=== PATIENT | male | born 1965 | race African-American/Black ===

== ENCOUNTER 2018-05-14 05:09 | Inpatient (IN) | payer MEDICARE, OTHER ==
[~2018-05-14] VITALS: Ht 170.2 cm; Wt 83.9 kg
--- NOTE | 2018-05-14 05:30 | NUR ---
PT BIBSELF FROM HOME C/C CONSTANT CHEST PAIN RADIATING TO RIGHT SHOULDER X3 DAYS, +N/V, +SOB, + PRODUCTIVE COUGH. PT C/O OF GENERALIZED ABD PAIN NONRADIATING. AFEBRILE. NAD NOTED. RESP EVEN AND UNLABORED. PT ON MONITOR IN BED 2. WILL CONTINUE TO MONITOR.
--- NOTE | 2018-05-14 05:32 | NUR ---
RADIOLOGY AT BEDSIDE FOR CXR
--- NOTE | 2018-05-14 05:43 | NUR ---
PHLEB AT BEDSIDE FOR LAB DRAW
[2018-05-14 05:55] LABS: EOSINOPHILS % (AUTO) 2.4 % (0.0-6.0); HEMATOCRIT 32 % (39-51); HEMOGLOBIN 10.3 g/dL (13.5-17.5); LYMPHOCYTES # (AUTO) 0.9 /CMM (0.8-4.8); LYMPHOCYTES % (AUTO) 23.2 % (20.0-44.0); MEAN CORPUSCULAR HGB CONC 32 g/dl (31.0-36.0); MEAN CORPUSCULAR VOLUME 71 fL (80-96); MONOCYTES # (AUTO) 0.6 /CMM (0.1-1.30); MONOCYTES % (AUTO) 15.5 % (2.0-12.0); NEUTROPHILS # (AUTO) 2.2 /CMM (1.8-8.9); NEUTROPHILS % (AUTO) 57.9 % (43.0-81.0); PLATELET COUNT (AUTO) 261 /CMM (150-450); RED BLOOD CELL COUNT(AUTO) 4.53 MIL/uL (4.5-6.0); WHITE BLOOD COUNT (AUTO) 3.7 K/uL (4.3-11.0)
[2018-05-14 06:03] LABS: CALCIUM, SERUM 9.1 mg/dL (8.5-10.1); CARBON DIOXIDE 26 mmol/L (21-32); CHLORIDE 105 mmol/L (98-107); GLUCOSE 106 mg/dL (74-106); POTASSIUM 4.2 mmol/L (3.5-5.1); SODIUM SERUM 141 mmol/L (136-145); UREA NITROGEN, BLOOD 14 mg/dL (7-18)
[2018-05-14] MEDS ORDERED: IV NS 0.9% 1,000 ML BAG IV ONE (06:30)
[2018-05-14] MEDS ORDERED: methylPREDNISolone SOD SUCC 125 MG/2ML VIAL IV ONE (06:30)
[2018-05-14] MEDS ORDERED: ONDANSETRON HCL/PF - ER 4 MG/2 ML VIAL IV ONE (06:30)
[2018-05-14] MEDS ORDERED: ALBUTEROL FS 2.5 MG/3 ML VIAL.NEB CONTNEB ONE (06:30)
[2018-05-14] MEDS ORDERED: IPRATROPIUM NEB FS 0.5 MG/2.5 ML AMPUL.NEB NEB ONE (06:30)
[2018-05-14] MEDS ORDERED: MORPHINE SULFATE INJ 2 MG/ML DISP.SYRIN IV ONE (06:30)
[2018-05-14] MEDS ORDERED: MORPHINE SULFATE INJ 4 MG/ML DISP.SYRIN ONE (06:31)
[2018-05-14] MEDS ORDERED: ONDANSETRON HCL/PF 4 MG/2 ML VIAL ONE (06:31)
[2018-05-14] MEDS ORDERED: methylPREDNISolone SOD SUCC 125 MG/2ML VIAL ONE (06:31)
--- NOTE | 2018-05-14 06:53 | NUR ---
RT CALLED FOR BREATHING TREATMENT
[2018-05-14] MEDS ORDERED: ALBUTEROL FS 2.5 MG/3 ML VIAL.NEB ONE (07:01)
[2018-05-14] MEDS ORDERED: IPRATROPIUM NEB FS 0.5 MG/2.5 ML AMPUL.NEB ONE (07:01)
--- NOTE | 2018-05-14 07:16 | NUR ---
ENDORSED TO [facility]GR[facility] FOR SIN
--- NOTE | 2018-05-14 07:49 | NUR ---
CALLED FOR TELE BED
--- NOTE | 2018-05-14 07:51 | NUR ---
DR NORIEGA AT FOR AN UPDATE AND RE-EVAL.
[2018-05-14] MEDS ORDERED: ALBU2.5V38 IH (08:00)
[2018-05-14] MEDS ORDERED: ALBU18HF2 IH (08:00)
[2018-05-14] MEDS ORDERED: LISI40TA4 PO (08:00)
[2018-05-14] MEDS ORDERED: LORA-259 PO (08:00)
[2018-05-14] MEDS ORDERED: FURO-144 PO (08:00)
[2018-05-14] MEDS ORDERED: BUDE10.2 IH (08:00)
[2018-05-14] MEDS ORDERED: SERT100T PO (08:00)
[2018-05-14] MEDS ORDERED: OXYC10TA49 PO (08:00)
--- NOTE | 2018-05-14 08:17 | NUR ---
FRANCISCO J CALLED SHE WILL CALL US RIGHT BACK.
--- NOTE | 2018-05-14 09:21 | NUR ---
RN NOTES RECEIVED REPORT FROM NEGR[facility] ECHEVERRIA FOR PATIENT COMING DUE CHEST PAIN WITH TELEMETRY ACUITY UNDER THE SERVIVE OF Brant GREEN NP. BED ZERO OUT. ROOM PREPARED. AWAITING FOR PATIENT'S ARRIVAL
--- NOTE | 2018-05-14 09:21 | NUR ---
REPORT GIVEN TO BRIJESH RN FOR SIN
--- NOTE | 2018-05-14 10:30 | NUR ---
wheeled patient to [facility] via acls protocol, in no apparent distress noted.
[2018-05-14 12:00] VITALS: BP 145/90
--- NOTE | 2018-05-14 12:45 | NUR ---
rn notes received patient from er, patient alert and oriented x4, able to make needs known, ambulatory. breathing unlabored, on room air, sating on 97%, patient transferred to bed, attached to monitor, sinus rhythm with t waves elevated hr at 96%, patient complaints of chest pain radiatibng to the r arm, patient given morphine at the er. vital signs taken and noted to be within normal ranges. mary assessment done- patient skin intact, no issues noted. patient kept warmth and comfortable. accounted all belongings. oriented to unit and use of call light. call light placed within reach. safety measures put in placed. will monitor patient closely and will wait for admitting orders
--- NOTE | 2018-05-14 12:50 | NUR ---
rn notes informed jayson gamino np that patient has been asking for patient medicine, per the later she's on the way to see the patient.
[2018-05-14] MEDS ORDERED: NITROGLYCERIN 0.4 MG/TAB BOTTLE SL PRN (13:30)
[2018-05-14] MEDS ORDERED: MAGNESIUM HYDROXIDE 30 ML UDC PO PRN (13:30)
[2018-05-14] MEDS ORDERED: ONDANSETRON HCL/PF 4 MG/2 ML VIAL IVP PRN (13:30)
[2018-05-14] MEDS ORDERED: ALBUTEROL FS 2.5 MG/3 ML VIAL.NEB NEB PRN (13:30)
[2018-05-14] MEDS ORDERED: ZOLPIDEM TARTRATE 5 MG TABLET PO PRN (13:30)
[2018-05-14] MEDS ORDERED: IPRATROPIUM NEB FS 0.5 MG/2.5 ML AMPUL.NEB NEB PRN (13:30)
[2018-05-14] MEDS ORDERED: methylPREDNISolone SOD SUCC 125 MG/2ML VIAL IV SCH (13:30)
[2018-05-14] MEDS ORDERED: ACETAMINOPHEN 325 MG TABLET PO PRN (13:30)
[2018-05-14] MEDS ORDERED: LIDOCAINE 5% (PATCH) 1 EA PATCH TP SCH (13:30)
--- NOTE | 2018-05-14 13:50 | NUR ---
rn notes went to bedside to give due medication, but patient refused " forget about all those medicine. they wont give me my pain medicine and i dont care those. give me the paper and ill sign it. charge nurse and attending informed.
--- NOTE | 2018-05-14 14:10 | NUR ---
rn notes facilitated against medical advice form, signed by patient. iv line and id band removed. all belongings accounted for. patient left ambulatory.
[2018-05-14] MEDS ORDERED: IPRATROPIUM NEB FS 0.5 MG/2.5 ML AMPUL.NEB NEB SCH (19:30)
[2018-05-14] MEDS ORDERED: ALBUTEROL FS 2.5 MG/3 ML VIAL.NEB NEB SCH (19:30)
== END 2018-05-14 14:12 | disposition left against medical advice (07) | DRG 192 ==
LOC: ER 05:13 → TELE1 08:20
PROVIDERS: ADMIT Nurse Practitioner Acute Care; ATTEND Nurse Practitioner Acute Care
DX: J44.1 Chronic obstructive pulmonary disease with (acute) exacerbation (principal); D50.9 Iron deficiency anemia, unspecified; G89.4 Chronic pain syndrome; I10 Essential (primary) hypertension; Z87.891 Personal history of nicotine dependence; Z90.49 Acquired absence of other specified parts of digestive tract; Z76.5 Malingerer [conscious simulation]; K52.9 Noninfective gastroenteritis and colitis, unspecified
CPT/HCPCS: 36415; 71045-TC; 80048-TC; 83690-TC; 83880; 84484-TC; 85025-TC; 85730-TC; G0378; J2270; J2405; J2930; J7030